=== PATIENT | male | born 1950 | race Caucasian/White ===

== ENCOUNTER 2021-07-20 14:59 | Emergency (ER) | payer OTHER, MEDICARE, BC ==
[~2021-07-20] VITALS: Ht 172.7 cm; Wt 73.0 kg
[2021-07-20] VITALS (23 sets, daily range): BP systolic 108–160; BP diastolic 55–104
[~2021-07-20 14:59] MED LIST: ADVAIR DISK1 IN; ASMANEX 120220 MCG IN; AVELOX400 MG OR; BENZONATATE100 MG OR; COMBIVENT IN; COMBIVENT INH; COMBIVENT RESPIMAT IN; DOXYCYCL HYC100 M3 OR; EPIPEN0.3 MG IM; FOLIC ACID1 MG PO; LISINOPRIL10 MG PO; LORTAB 10-325 M1 TAB PO; MEDDOSEPAK PO; METOPROL TAR25 MG PO; PREDNISONE20 MG OR; SINGULAIR10 MG OR; SYMBICORT 80-4.5MCG IN; TRAZODONE50 MG PO; ULTRAM50 M1 PO; ZITHROMAX250 MG PO
[2021-07-20 15:33] LABS: HEMATOCRIT 42.2 % (39.0-50.0); HEMOGLOBIN 13.9 g/dl (14.0-18.0); IMMATURE GRANULOCYTES 0.3 % (0.0-5.0); MEAN CELL VOLUME 99.5 fL CALC (80.0-100.0); MEAN CORPUSCULAR HGB 32.8 pG CALC (26.0-32.0); MEAN CORPUSCULAR HGB CONC 32.9 g/dL CAL (32.0-36.0); NEUT# 5.15 thou/uL (1.82-7.42); RED BLOOD COUNT 4.24 mill/uL (4.70-6.10); RED CELL DISTRI WIDTH 13.1 % (11.5-15.5)
[2021-07-20 15:40] LABS: ALBUMIN 4.1 g/dL (3.2-5.0); ALKALINE PHOSPHATASE 60 u/l (38-126); ANION GAP 11 (6-22 (CALC)); BILIRUBIN, TOTAL 0.3 mg/dL (0.0-1.4); BUN 18 mg/dL (8-23); BUN/CREATININE RATIO 21 (12-20 (CALC)); CARBON DIOXIDE 24 mmol/l (22-30); CHLORIDE 108 mmol/l (95-108); CREATININE 0.9 mg/dL (0.7-1.3); GFR FOR AFR.AMER. > 60 ML/MIN (>=60 (CALC)); GFR OTHER RACES > 60 ML/MIN (>=60 (CALC)); SGOT/AST 26 u/l (19-48); SODIUM 139 mmol/l (137-146); TOTAL PROTEIN 6.6 g/dL (6.3-8.2)
[2021-07-20 15:52] LABS: MYOGLOBIN 120 ng/mL (0 - 121)
[2021-07-21 00:05] VITALS: BP 113/62
== END 2021-07-21 00:06 | DRG 563 ==
LOC: ED 14:59
PROVIDERS: Emergency Medicine
PROC: 0T9B70Z Drainage of Bladder with Drainage Device, Via Natural or Artificial Opening (ICD-10-PCS; principal; 2021-07-20)
PROC: 2W3AX1Z Immobilization of Right Upper Arm using Splint (ICD-10-PCS; 2021-07-20)
PROC: 0HQ1XZZ Repair Face Skin, External Approach (ICD-10-PCS; 2021-07-20)
DX: S42.301A Unspecified fracture of shaft of humerus, right arm, initial encounter for closed fracture (principal); S01.112A Laceration without foreign body of left eyelid and periocular area, initial encounter; J44.9 Chronic obstructive pulmonary disease, unspecified; F17.210 Nicotine dependence, cigarettes, uncomplicated; V43.52XA Car driver injured in collision with other type car in traffic accident, initial encounter